=== PATIENT | female | born 1955 | race Caucasian/White ===

== ENCOUNTER 2025-05-09 23:31 | Inpatient (IN) | payer MEDICARE, MEDICAID ==
[2025-05-09 23:53] LABS: #Basophils 0.06 10x3/uL (0.0-0.2); #Eosinophils 0.16 10x3/uL (0.0-0.7); #Monocytes 0.60 10x3/uL (0.11-0.59); #Neutrophils 7.93 10x3/uL (1.40-6.50); %Basophils 0.5 % (0.0-1.0); %Eosinophils 1.4 % (0.0-10.0); %Lymphocytes 19.3 % (21.0-51.0); %Monocytes 5.4 % (0.0-10.0); %Neutrophils 71.9 % (42.0-75.0); Hematocrit 29.4 % (36.0-47.0); Hemoglobin 9.1 g/dL (12.0-16.0); Mean Corpuscular Hemoglobin 28.8 pg (27.0-31.0); Mean Corpuscular Volume 93.0 fL (78.0-98.0); Platelet Count 254 10x3/uL (130-400); Red Blood Cell (RBC) Count 3.16 mill/uL (4.20-5.40); White Blood Cell (WBC) Count 11.06 10x3/uL (4.8-10.8)
[2025-05-10 00:14] LABS: Acetaminophen Less than 10 mcg/mL (Less than 10); Salicylate Less than 8.0 mg/dL (Less than 8.0)
[2025-05-10 00:15] LABS: ALT (SGPT) 9 U/L (Less than 34); AST (SGOT) 15 U/L (11-34); Albumin 3.1 g/dL (3.1-4.5); Alkaline Phosphatase 73 U/L (40-110); Anion Gap 14 mmol/L (10-20); BUN (Urea Nitrogen) 33 mg/dL (9.8-20.1); Bilirubin, Total 0.1 mg/dL (0.3-1.2); Calc. Creatinine Clearance 0 mL/min (70-130); Calcium 7.9 mg/dL (7.8-10.44); Carbon Dioxide 14 mmol/L (23-31); Chloride 111 mmol/L (98-107); Globulin 2.2 g/dL (2.4-3.5); Glucose 136 mg/dL (80-115); Potassium 3.8 mmol/L (3.5-5.1); Sodium 135 mmol/L (136-145)
[2025-05-10 00:56] LABS: Cocaine Metabolite Screen Negative (Negative); THC/Cannabinoid Screen Negative (Negative); Tricyclic Screen Negative (Negative)
[2025-05-10 00:57] LABS: Bacteria/HPF None Seen HPF (None Seen); CAUTI Indications for Culture Alt mental st,lethar; Glucose, Urine (Dipstick) >=1000 mg/dL (Negative); Leukocyte 25 Leu/uL (Negative); Protein, Urine (Dipstick) 300 mg/dL (Neg-Trace); RBC/HPF 0-3 HPF (0-3); Specific Gravity, Urine 1.013 (1.002-1.036)
[2025-05-10 01:04] LABS: Urine Culture Reflex No No
[2025-05-10] MEDS ORDERED: hydrALAZINE 20 MG/ML VIAL ONE (01:37)
[2025-05-10] MEDS ORDERED: Guaifenesin DM 100-10/5 ML UDCUP PO PRN (04:25)
[2025-05-10] MEDS ORDERED: Senokot S 8.6-50 MG TAB PO PRN (04:25)
[2025-05-10] MEDS ORDERED: Bisacodyl 10 MG SUPP PR PRN (04:25)
[2025-05-10] MEDS ORDERED: Melatonin 3 MG TAB PO PRN (04:25)
[2025-05-10] MEDS ORDERED: Calcium Carbonate 500 MG ChewTAB PO PRN (04:25)
[2025-05-10] MEDS ORDERED: Electrolyte Replacement Protocol 1 EACH FS SCH (04:30)
[2025-05-10] MEDS ORDERED: Magnesium 2 GM/50 ML(in water) 2 GM in Premix 1 BAG IVPB PRN (04:45)
[2025-05-10] MEDS ORDERED: PHOS-NAK 1 PKT PACK PO PRN (04:45)
[2025-05-10] MEDS ORDERED: Potassium Chloride 20 MEQ in Premix 1 BAG IVPB PRN (04:45)
[2025-05-10 08:26] VITALS: BMI 28.4
[2025-05-10] MEDS ORDERED: hydrALAZINE 20 MG/ML VIAL SLOW IVP PRN (09:00)
[2025-05-10] MEDS: Enoxaparin 30 MG (0.3 mL) SYRINGE SC SCH (09:04)
[2025-05-10] MEDS: Acetaminophen 325 MG TAB PO PRN (09:04)
[2025-05-10] MEDS: Ergocalciferol 1.25 MG(50,000 UNITS) CAP PO SCH ×2 (15:36→15:39)
[2025-05-10] MEDS: PAROXETINE 10 MG/5 ML PO SCH (20:06)
[2025-05-10] MEDS: FLU (Fluad Triv) 25-26 (65UP)PF 45 MCG/0.5 ML Syringe IM ONE (20:12)
[2025-05-10] MEDS: PNEUMOC 20-VAL CONJ-DIP CRM/PF 0.5 ML SYRINGE IM ONE (20:12)
[2025-05-11 05:36] LABS: #Basophils 0.04 10x3/uL (0.0-0.2); #Eosinophils 0.17 10x3/uL (0.0-0.7); #Monocytes 0.31 10x3/uL (0.11-0.59); #Neutrophils 5.73 10x3/uL (1.40-6.50); %Basophils 0.5 % (0.0-1.0); %Eosinophils 2.1 % (0.0-10.0); %Lymphocytes 21.5 % (21.0-51.0); %Monocytes 3.9 % (0.0-10.0); %Neutrophils 71.7 % (42.0-75.0); Hematocrit 29.9 % (36.0-47.0); Hemoglobin 9.1 g/dL (12.0-16.0); Mean Corpuscular Hemoglobin 28.3 pg (27.0-31.0); Mean Corpuscular Volume 93.1 fL (78.0-98.0); Platelet Count 254 10x3/uL (130-400); Red Blood Cell (RBC) Count 3.21 mill/uL (4.20-5.40); White Blood Cell (WBC) Count 7.99 10x3/uL (4.8-10.8)
[2025-05-11 06:02] LABS: Anion Gap 13 mmol/L (10-20); BUN (Urea Nitrogen) 27 mg/dL (9.8-20.1); Calc. Creatinine Clearance 20 mL/min (70-130); Calcium 8.1 mg/dL (7.8-10.44); Carbon Dioxide 14 mmol/L (23-31); Chloride 116 mmol/L (98-107); Glucose 98 mg/dL (80-115); Potassium 3.7 mmol/L (3.5-5.1); Sodium 139 mmol/L (136-145)
[2025-05-11] MEDS: Cyanocobalamin (Vitamin B-12) 1,000 MCG TAB PO SCH (08:32)
[2025-05-11] MEDS: Ondansetron PF 4 MG/2 ML Vial IVP PRN (13:20)
[2025-05-12 16:36] VITALS: BP 142/68; TEMP 97.6
[2025-05-17] MEDS ORDERED: Ergocalciferol 1.25 MG(50,000 UNITS) CAP PO SCH (15:00)
== END 2025-05-12 19:37 | disposition home or self-care (01) | DRG 312 ==
LOC: ERS 23:31 → ERHOLD 05-10 03:36 → OBS 05-10 08:10 → OBSVTOIN 05-11 17:43
PROVIDERS: ADMIT Internal Medicine; ATTEND Internal Medicine
DX: I95.1 Orthostatic hypotension (principal); N18.4 Chronic kidney disease, stage 4 (severe); E87.20 Acidosis, unspecified; I16.0 Hypertensive urgency; I12.9 Hypertensive chronic kidney disease with stage 1 through stage 4 chronic kidney disease, or unspecified chronic kidney disease; S83.207A Unspecified tear of unspecified meniscus, current injury, left knee, initial encounter; F41.9 Anxiety disorder, unspecified; Z23 Encounter for immunization; Z79.899 Other long term (current) drug therapy; D63.1 Anemia in chronic kidney disease; D72.829 Elevated white blood cell count, unspecified; M19.90 Unspecified osteoarthritis, unspecified site; I34.0 Nonrheumatic mitral (valve) insufficiency; W19.XXXA Unspecified fall, initial encounter
CPT/HCPCS: 36415; 70450; 70551; 71045; 80048; 80053; 80306; 80307; 81001; 83605; 84443; 84484; 85025; 93005; 93306; 93880; 95816; 95819; 96372; 96374; 96375; G0378; J0360; J1650; J2405; J7030; J7517; Q0162